=== PATIENT | female | born 1925 | race Caucasian/White ===

== ENCOUNTER 2017-01-12 10:42 | Outpatient (CLI) ==
[2017-01-12 16:02] VITALS: BMI 20.8
== END 2017-01-12 10:43 | disposition home or self-care (01) ==
LOC: AMBL 10:42
PROVIDERS: ATTEND Internal Medicine
DX: R41.82 Altered mental status, unspecified (principal); F03.90 Unspecified dementia, unspecified severity, without behavioral disturbance, psychotic disturbance, mood disturbance, and anxiety

== ENCOUNTER 2017-01-12 10:53 | Observation (INO) ==
[2017-01-12 11:27] LABS: BASOPHILS % (AUTO) 0.4 % (0.0-3.0); EOSINOPHILS # (AUTO) 0.1 K/ul (0.0-0.7); EOSINOPHILS % (AUTO) 0.7 % (0.0-7.0); IMMATURE GRANULOCYTE % (AUTO) 0.5 % (0.0-5.0); LYMPHOCYTES # (AUTO) 2.1 K/uL (0.60-3.4); LYMPHOCYTES % (AUTO) 19.3 (10.0-50.0); MEAN CORPUSCULAR HEMOGLOBIN 31.2 pg (27.0-31.0); MEAN CORPUSCULAR HGB CONC 32.4 (31.8-35.4); MEAN CORPUSCULAR VOLUME 96.3 fl (81.0-99.0); MONOCYTES # (AUTO) 0.7 K/uL (0.4-2.0); MONOCYTES % (AUTO) 6.6 (0-10); NEUTROPHILS % (AUTO) 72.5; PLATELET COUNT 232 10^3/uL (140-440); RED BLOOD COUNT 3.53 10^6/ul (4.20-5.40); WHITE BLOOD COUNT 10.97 K/ul (4.6-10.2)
--- NOTE | 2017-01-12 11:38 | CT ---
EXAM: CT of the head without contrast History: Altered mental status. Comparison: Head CT 05/15/2016 Technique: Multiplanar CT images through the head were obtained without the administration of IV con trast Findings: The visualized paranasal sinuses and mastoid air cells are clear in general. No acute ca lvarial abnormalities. Intracranially there is stable atrophy. No dominant mass or midline shift. No hydrocephalous. No acute intracranial hemorrhage or abnormal extraaxial fluid collections. No change in the periventri cular and subcortical white matter hypodensities. Impression: No acute intracranial process. Stable chronic age-related changes.
[2017-01-12 11:41] LABS: ABG BASE EXCESS -4 (-2.0-2.0); ABG HCO3 21.1 (22.0-26.0); ABG PCO2 33.2 mmHg (35-45); ABG TCO2 22 (22.0-28.0)
[2017-01-12 11:44] LABS: ALBUMIN 2.9 g/dL (3.4-5.0); ALBUMIN/GLOBULIN RATIO 0.76; ANION GAP 11.3; BILIRUBIN,TOTAL 0.26 mg/dL (0.00-1.20); BUN/CREATININE RATIO 17.46; CALCIUM 9.2 mg/dL (8.2-10.2); CREATININE 1.26 mg/dL (0.60-1.30); POTASSIUM 4.3 mmol/L (3.5-5.10); TOTAL PROTEIN 6.7 g/dL (5.8-8.1); TROPONIN I 0.026 ng/ml (0.0000-0.4000)
--- NOTE | 2017-01-12 13:58 | ED.PDOC ---
General ED Provider: Dr. LEE NEWSOME Chief Complaint: Altered Mental Status Stated Complaint: altered Time Seen by Physician: 11:00 Mode of Arrival: Ambulance Information Source: Patient, Fpc, EMT Exam Limitations: No limitations Primary Care Provider: NEFTALY VILLAGRAN Nursing and Triage Documentation Reviewed and Agree: Yes Neurological Complaint Exam - Altered Mental Status Complaint/Exam Current Mental Status: Other (weak altered berifely at half-way easily arousable answere question c/o chest pain) Last Known Well: unknwon Onset: Gradual Duration: few min totaly alet on arrival c/o of dull chest pain mild no radiation Symptoms Are: Resolved Timing: Intermittent Episodes Lasting: Minutes Initial Severity: Mild Current Severity: None Eye Deviation Present: No Character: Reports: Lethargy Aggravating: Reports: None Alleviating: Reports: Spontaneous resolution Associated Signs and Symptoms: Reports: Weakness. Denies: Dizziness, Headache, Fever, Illness, Nuchal rigidity, Seizure, Nausea, Vomiting, Recently depressed, Trauma Review of Systems - Review Of Systems Constitutional: Reports: Malaise, Weakness Eyes: Reports: No symptoms Ears, Nose, Mouth, Throat: Reports: No symptoms Respiratory: Reports: No symptoms Cardiac: Reports: No symptoms GI: Reports: No symptoms : Reports: No symptoms Musculoskeletal: Reports: No symptoms Skin: Reports: No symptoms Neurological: Reports: Cognitive dysfunction Endocrine: Reports: No symptoms Hematologic/Lymphatic: Reports: No symptoms All Other Systems: Reviewed and Negative Past Medical History - Past Medical History Previously Healthy: Yes Endocrine: Reports: Dyslipidemia Cardiovascular: Reports: Hypertension Respiratory: Reports: None Hematological: Reports: None Gastrointestinal: Reports: None Genitourinary: Reports: None Neuro/Psych: Reports: Depression, Dementia Musculoskeletal: Reports: None Cancer: Reports: None Last Menstrual Period: NONE Other Pertinent Past Medical History: lt hip fx, left shoulder dislocation - Surgical History General Surgical History: Reports: Unknown - Family History Family History: Reports: Unknown - Social History Smoking Status: Former smoker Hx Substance Use: No Alcohol Screening: None Physical Exam - Physical Exam Appearance: Ill-appearing Ill-appearing: Mild Pain Distress: Mild Eyes: SANDRINE, EOMI, Conjunctiva clear ENT: Ears normal, Nose normal, Oropharynx normal Respiratory: Airway patent, Breath sounds clear, Breath sounds equal, Respirations nonlabored Cardiovascular: RRR, Pulses normal, No rub, No murmur GI/: Soft, Nontender, No masses, Bowel sounds normal, No Organomegaly Musculoskeletal: Normal strength, ROM intact, No edema, No calf tenderness Skin: Warm, Dry, Normal color Neurological: Sensation intact, Motor intact, Reflexes intact, Cranial nerves intact, Alert, Oriented Psychiatric: Affect appropriate, Mood appropriate Interpretation - Radiology Interpretation Radiology Interpretation By: Radiologist Radiology Results: No acute changes Re-Evaluation - Re-Evaluation Time of Re-Evaluation: 13:00 Status: Improved Vital Signs Stable: Yes Pain Level: 0 Appearance: NAD Lungs: Clear Skin: Warm and Dry Neuro: Alert and Oriented X3 CV: RRR - Re-Evaluation Time of Re-Evaluation: 14:00 Status: Unchanged Vital Signs Stable: Yes Pain Level: 0 Appearance: NAD Skin: Warm and Dry Neuro: Alert and Oriented X3 CV: RRR Physician Notification - Case Discussed Physician Notified: pmd Time of Notification: 14:00 (admitt to observation) Admit To: Observation Critical Care Note - Critical Care Note Total Time (mins): 0 Course - Course Hematology/Chemistry: 01/12/17 11:05 01/12/17 11:05 Orders, Labs, Meds: Lab Review 01/12/17 01/12/17 11:05 11:30 WBC 10.97 H RBC 3.53 L Hgb 11.0 L Hct 34.0 L MCV 96.3 MCH 31.2 H MCHC 32.4 RDW Coeff of Kayleen 12.6 Plt Count 232 Immature Gran % (Auto) 0.5 Neut % (Auto) 72.5 Lymph % (Auto) 19.3 Christian % (Auto) 6.6 Eos % (Auto) 0.7 Baso % (Auto) 0.4 Immature Gran # (Auto) 0.1 Neut # 8.0 H Lymph # 2.1 Christian # 0.7 Eos # 0.1 Baso # 0.0 Puncture Site R rad O2 Saturation 97.0 ABG pH 7.410 ABG pCO2 33.2 L ABG pO2 90.0 ABG HCO3 21.1 L ABG Total CO2 22 ABG Base Excess -4 L Leonel Test + FiO2 % 21.0 Sodium 142 Potassium 4.3 Chloride 109 H Carbon Dioxide 26 Anion Gap 11.3 BUN 22 H Creatinine 1.26 Estimated GFR (MDRD) 40.00 BUN/Creatinine Ratio 17.46 Glucose 189 H Calcium 9.2 Total Bilirubin 0.26 AST 25 ALT 14 Alkaline Phosphatase 61 Total Creatine Kinase 56 Troponin I 0.0260 Total Protein 6.7 Albumin 2.9 L Globulin 3.8 Albumin/Globulin Ratio 0.76 Orders Category Date Time Status ABG DRAW REQUEST Stat CARDIO 01/12/17 11:07 Completed EKG-(ED ONLY) Stat CARDIO 01/12/17 11:05 Completed ED IV/MEDIPORT/POWERPORT .ONCE EMERGENCY 01/12/17 11:05 Active ARTERIAL BLOOD GAS [ABG] Stat LAB 01/12/17 11:30 Completed CBC W/ AUTO DIFF Stat LAB 01/12/17 11:05 Completed COMPREHENSIVE METABOLIC PANEL Stat LAB 01/12/17 11:05 Completed CREATINE KINASE Stat LAB 01/12/17 11:05 Completed TROPONIN I Stat LAB 01/12/17 11:05 Completed URINALYSIS C & S IF INDICATED Stat LAB 01/12/17 11:05 Uncollected 0.9 % Sodium Chloride [Saline Flush] MEDS 01/12/17 11:05 Active 1 syr IVF PRN PRN CT HEAD W/O CONTRAST Stat RADS 01/12/17 11:07 Completed Medications Generic Name Dose Route Start Last Admin Trade Name Freq PRN Reason Stop Dose Admin Sodium Chloride 1 syr 01/12/17 11:05 Saline Flush IVF PRN PRN To flush IV Vital Signs: Temp Pulse Resp BP Pulse Ox 01/12/17 10:53 98.4 F 68 20 98/51 L 100 Departure - Departure Time of Disposition: 14:00 Disposition: PLACED OBSERVATION Discharge Problem: Altered mental status Instructions: Altered Mental Status (ED) Condition: Good Pt referred to PMD for follow-up: Yes (admitt) Allergies/Adverse Reactions: Allergies donepezil HCl [From Aricept] Adverse Reaction (Verified 05/15/16 10:14) Home Medications: Ambulatory Orders Docusate Sodium 100 mg PO BID 08/29/14 Ferrous Sulfate 325 mg PO BID 08/29/14 Magnesium Hydroxide [Milk of Magnesia] 30 ml PO DAILY PRN 08/29/14 Omeprazole [Prilosec] 20 mg PO QDAC 08/29/14 Loratadine [Claritin] 10 mg PO DAILY 11/01/15 Polyethylene Glycol 3350 [Miralax] 17 gm PO DAILY 11/01/15 Calcium Carbonate [Calcium] 600 mg PO BID 05/06/16 Cholecalciferol (Vitamin D3) [Vitamin D3] 2,000 unit PO DAILY 05/06/16 Lisinopril [Zestril] 40 mg PO DAILY #30 tablet 05/12/16 Multivits,Th W-Fe,Other Min [Therems-M] 1 each PO BID 06/22/16 Thiamine HCl 50 mg PO DAILY 06/22/16 Potassium Chloride [K-Dur] 10 meq PO BID 01/12/17 Disposition Discussed With: Patient, Family
[2017-01-12] MEDS: SODIUM CHLORIDE 1,000 ML IV SCH (15:55)
[2017-01-12] MEDS: BACTROBAN TP SCH ×2 (15:55→20:08)
[2017-01-12 16:02] VITALS: BMI 20.8
[2017-01-12] MEDS ORDERED: K-DUR PO STA (20:10)
[2017-01-12] MEDS: K-DUR PO SCH (20:12)
[2017-01-12 20:26] LABS: TROPONIN I 0.025 ng/ml (0.0000-0.4000)
[2017-01-13] MEDS: SODIUM CHLORIDE 1,000 ML IV SCH ×2 (04:27→18:34)
[2017-01-13 04:48] LABS: BASOPHILS % (AUTO) 0.4 % (0.0-3.0); EOSINOPHILS # (AUTO) 0.1 K/ul (0.0-0.7); EOSINOPHILS % (AUTO) 1.3 % (0.0-7.0); HEMATOCRIT 29.1 % (37.0-47.0); HEMOGLOBIN 9.7 g/dl (12.0-16.0); IMMATURE GRANULOCYTE % (AUTO) 0.1 % (0.0-5.0); LYMPHOCYTES % (AUTO) 26.4 (10.0-50.0); MEAN CORPUSCULAR HEMOGLOBIN 31.5 pg (27.0-31.0); MEAN CORPUSCULAR HGB CONC 33.3 (31.8-35.4); MEAN CORPUSCULAR VOLUME 94.5 fl (81.0-99.0); MONOCYTES # (AUTO) 0.7 K/uL (0.4-2.0); NEUTROPHILS # (AUTO) 4.8 K/ul (2.0-6.9); NEUTROPHILS % (AUTO) 62.8; PLATELET COUNT 196 10^3/uL (140-440); RED BLOOD COUNT 3.08 10^6/ul (4.20-5.40); WHITE BLOOD COUNT 7.68 K/ul (4.6-10.2)
[2017-01-13 05:14] LABS: ALBUMIN 2.6 g/dL (3.4-5.0); ALBUMIN/GLOBULIN RATIO 0.84; ANION GAP 11.1; BILIRUBIN,TOTAL 0.3 mg/dL (0.00-1.20); BUN/CREATININE RATIO 23.86; CALCIUM 8.4 mg/dL (8.2-10.2); CREATININE 0.88 mg/dL (0.60-1.30); POTASSIUM 4.1 mmol/L (3.5-5.10); TOTAL PROTEIN 5.7 g/dL (5.8-8.1); TROPONIN I 0.021 ng/ml (0.0000-0.4000)
[2017-01-13] MEDS ORDERED: THIAMINE HCL 50 MG PO SCH (09:00)
[2017-01-13 09:12] LABS: CHOL/HDL RATIO 4.2 (4.5-5.5)
--- NOTE | 2017-01-13 09:17 | PCM.PROG ---
Attending Provider: ATTENDING PROVIDER: Dr. NEFTALY VILLAGRAN DATE OF SERVICE: 01/13/17 SUBJECTIVE: This 89 year old WHITE/ F was hospitalized 01/12/17. The patient is seen with Marissa, Nurse Practitioner. The patient was admitted to observation with acute confusion and weakness. She is lying in bed, oriented to person. MRI of the brain is scheduled for today. REVIEW OF SYSTEMS: CONSTITUTIONAL: Confusion; generalized weakness, fatigue. No night sweats. No fever or chills. HEENT: Eyes: No visual changes. No eye pain. No eye discharge. ENT: No runny nose. No epistaxis. No sinus pain. No odynophagia. No congestion. RESPIRATORY: No cough, no congestion. No hemoptysis. CARDIOVASCULAR: No angina symptoms. No CHF symptoms. No atypical chest pain for CAD. No palpitations. No shortness of breath. GASTROINTESTINAL: No abdominal pain. No nausea or vomiting. No diarrhea or constipation. No hematemesis. No hematochezia. GENITOURINARY: No urgency. No frequency. No dysuria. No hematuria. No obstructive symptoms. No discharge. No pain. No significant abnormal bleeding. MUSCULOSKELETAL: No musculoskeletal pain; no joint swelling. NEUROLOGICAL: Awake, somewhat confused, oriented to person. No headache. No neck pain. No syncope. No seizures. No dizziness. PSYCHIATRIC: Not anxious. No depression. No suicidal thoughts. No homicidal thoughts. SKIN: No rash. Skin tears right upper extremity and right lower extremity. ENDOCRINE: No unexplained weight loss. No weight gain. HEMATOLOGIC/LYMPHATIC: No anemia. No purpura. No petechiae. No prolonged or excessive bleeding. No palpable lymph nodes. PHYSICAL EXAMINATION: GENERAL: The patient is awake, confused, oriented to person lying in bed in no distress. VITAL SIGNS: Temperature 98.2 F, Pulse 65, Respiratory Rate 15, BP 155/74, Pulse Ox 99% HEENT: Head normocephalic, atraumatic. Eyes: Extraocular muscles are intact. Pupils are equal, round and reactive to light and accommodation. Ears: No lesions. Nose appeared normal. Throat: No exudate or erythema. NECK: Supple. No JVD, no carotid bruit. No lymphadenopathy or thyromegaly. LUNGS: Clear and equally diminished to auscultation. Percussion note normal. Chest symmetrical. HEART: S1, S2, no S3. Grade II/ murmur. No cyanosis or clubbing. No ascites. Pulses: Dorsalis pedis and posterior tibial pulses +1 to +2 both sides. ABDOMEN: Soft. Non-tender. Bowel sounds active. No CVA tenderness. No mass felt. EXTREMITIES: No edema. Full range of motion of all extremities, equal. NEUROLOGIC: No focal deficit. Cranial nerves II through XII are grossly intact. No headache, no double vision or headache. SKIN: Chronic superficial skin tears right lower extremity with sanguineous drainage only, localized erythema. No signs of infection. Right forearm also has skin tear. LYMPHATIC: No palpable lymph nodes/no lymphedema. MUSCULOSKELETAL: Normal joints with no swelling. Muscle tone is normal. LAB REVIEW: 01/13/17 04:15 01/13/17 04:15 01/13/17 04:15: WBC 7.68, RBC 3.08 L, Hgb 9.7 L, Hct 29.1 L, MCV 94.5, MCH 31.5 H, MCHC 33.3, RDW Coeff of Kayleen 12.5, Plt Count 196, Immature Gran % (Auto) 0.1, Neut % (Auto) 62.8, Lymph % (Auto) 26.4, [place] % (Auto) 9.0, Eos % (Auto) 1.3, Baso % (Auto) 0.4, Immature Gran # (Auto) 0.0, Neut # 4.8, Lymph # 2.0, [place] # 0.7, Eos # 0.1, Baso # 0.0, Sodium 143, Potassium 4.1, Chloride 112 H, Carbon Dioxide 24, Anion Gap 11.1, BUN 21 H, Creatinine 0.88, Estimated GFR (MDRD) 61.00, BUN/Creatinine Ratio 23.86, Glucose 86 D, Calcium 8.4, Total Bilirubin 0.30, AST 20, ALT 12, Alkaline Phosphatase 52 L, Total Creatine Kinase 55, Troponin I 0.0210, Total Protein 5.7 L, Albumin 2.6 L, Globulin 3.1, Albumin/ Globulin Ratio 0.84 01/12/17 20:00: Total Creatine Kinase 50, Troponin I 0.0250 ASSESSMENT: 1. Altered mental status 2. Weakness 3. Superficial skin tears right lower extremity and right upper extremity 4. Aortic stenosis 5. Hypertension 6. Dementia PLAN: 1. Continue Bactroban to right lower extremity 2. Lipid panel 3. T4 and TSH 4. Wound culture pending 5. Echocardiogram 6. MRI of the brain today Plan and coordination of the patient's care discussed in the presence of Nickel Operator and nurse. CONDITION: Stable SCRIBED BY: SOUMYA GABRIEL Historic Clothing And Costume Maker scribed while in presence of service performed by Dr. NEFTALY VILLAGRAN/MARISSA SHETH APRN on 01/13/17 ([id number])
--- NOTE | 2017-01-13 09:29 | PN ---
DATE OF SERVICE: 01/12/17 ADMIT NOTE REASON FOR HOSPITALIZATION: Altered Mental Status. HISTORY OF PRESENT ILLNESS: The patient is an 89 year old white female had altered mental status. The detention called and asked the daughter where she would like her to be taken. They brought her to the Emergency Room at [facility]. The patient had check-up by ER attending with CT scan of the head and lab tests. The patient was found to have mild dehydration otherwise CT scan of the head did not show any acute abnormality. Her blood gasses were normal and so were CBC and CMP with mild and mild dehydration with creatinine of 1.2 and BUN of 22. REVIEW OF SYSTEMS: The patient is somewhat drowsy and unable to give any review of system but doesn't seem to be in any distress. CONSTITUTIONAL: No night sweats. No fatigue, malaise, lethargy. No fever or chills. HEENT: Eyes: No visual changes. No eye pain. No eye discharge. ENT: No runny nose. No epistaxis. No sinus pain. No sore throat. No odynophagia. No ear pain. No congestion. RESPIRATORY: No cough, no congestion. No hemoptysis. CARDIOVASCULAR: No angina symptoms. No CHF symptoms. No atypical chest pain for CAD. No palpitations. No shortness of breath. GASTROINTESTINAL: No abdominal pain. No nausea or vomiting. No diarrhea or constipation. No hematemesis. No hematochezia. GENITOURINARY: No urgency. No frequency. No dysuria. No hematuria. No obstructive symptoms. No discharge. No pain. No significant abnormal bleeding. MUSCULOSKELETAL: No musculoskeletal pain. No joint swelling. No arthritis. NEUROLOGICAL: No headache. No neck pain. No syncope. No seizures. No dizziness. PSYCHIATRIC: Not anxious. No depression. No suicidal thoughts. No homicidal thoughts. SKIN: No rash. No lesions. No wounds. ENDOCRINE: No unexplained weight loss. No weight gain. HEMATOLOGIC/LYMPHATIC: No anemia. No purpura. No petechiae. No prolonged or excessive bleeding. No palpable lymph nodes. PHYSICAL EXAMINATION: GENERAL: The patient is alert, drowsy at time. VITAL SIGNS: Temperature 98.4, pulse 68, respiratory rate 20, blood pressure 98 /51 and pulse ox 100%. HEENT: Head normocephalic, atraumatic. Eyes: Extraocular muscles are intact. Pupils are equal, round and reactive to light and accommodation. Ears: No lesions. Nose appeared normal. Throat: No exudate or erythema. NECK: Supple. No JVD, no carotid bruit. No lymphadenopathy or thyromegaly. LUNGS: Decreased breath sounds but clear to auscultation. Percussion note normal. Chest symmetrical. HEART: S1, S2, no S3. No murmurs. No cyanosis or clubbing. No ascites. Pulses: Dorsalis pedis and posterior tibial pulses +1 to +2 both sides. ABDOMEN: Soft. Nontender. Bowel sounds active. No CVA tenderness. No mass felt. EXTREMITIES: No edema. Full range of motion of all extremities, equal. Ulcers on the right leg friction from shearing with very thin skin. The patient's lower extremity the right one is externally rotated and ulcer are superficial Grade I. The patient has another tear on right elbow and needs to be cleaned and have steri-strips on it. All the friction ulcers which are approximately 1.5in and all has normal healthy granulation tissue with no infection. They are superficial as mentioned above. NEUROLOGIC: No focal deficit. Cranial nerves II through XII are grossly intact. No headache, no double vision or headache. SKIN: Not dry. Intact. Turgor - normal. LYMPHATIC: No palpable lymph nodes/no lymphedema. MUSCULOSKELETAL: Normal joints with no swelling. Muscle tone is normal. ASSESSMENT: 1. Change in the mental status, etiology unknown could be dehydration 2. Coronary artery disease 3. Hypertension 4. Alzheimer's disease 5. COPD 6. Depression 7. Status post left hip fracture repair 8. Status post Biliary obstruction, history of 9. Recurrent urinary tract infection PLAN: 1. Admit the patient 2. IV fluids 3. Neuro check every two hourly 4. Will do MRI brain tomorrow 5. The patient's daughter is in the room and talked to her about the patient's condition and they are satisfied with where the patient is receiving the care. 6. Will do Bactroban application twice a day to superficial ulcers. 7. The patient did not have any urine specimen given, will check her for UTI. PROGNOSIS: Healing the ulcers are not good because of the patient's bed ridden condition. Of course external rotated right leg is against the bed sheet and she will have to turned quite often but still with the way her positional status is and friction and thin skin she is going to be prone to more ulcers and hard to heal. TIME SPENT: More than 70 minutes. LATANYA
[2017-01-13] MEDS: BACTROBAN TP SCH ×2 (09:51→20:11)
[2017-01-13] MEDS: K-DUR PO SCH ×2 (09:51→20:11)
[2017-01-13] MEDS: ZESTRIL PO SCH (09:51)
[2017-01-13 12:14] LABS: BILIRUBIN,URINE Negative (NEGATIVE); KETONES,URINE Negative (NEGATIVE); LEUKOCYTE ESTERASE ,URINE Trace (NEGATIVE); NITRITE,URINE Positive (NEGATIVE); PH,URINE 7.5 (5-9); PROTEIN,URINE 2+ (NEGATIVE); URINE, BLOOD Trace-intact (NEGATIVE)
[2017-01-13 12:15] LABS: ADD URINE MICROSCOPIC YES
[2017-01-13 12:16] LABS: BACTERIA,URINE 2+ (NOT PRESENT)
[2017-01-14 05:00] LABS: BASOPHILS % (AUTO) 0.5 % (0.0-3.0); EOSINOPHILS # (AUTO) 0.1 K/ul (0.0-0.7); HEMATOCRIT 30.2 % (37.0-47.0); HEMOGLOBIN 10.3 g/dl (12.0-16.0); IMMATURE GRANULOCYTE % (AUTO) 0.2 % (0.0-5.0); LYMPHOCYTES # (AUTO) 1.9 K/uL (0.60-3.4); LYMPHOCYTES % (AUTO) 29.8 (10.0-50.0); MEAN CORPUSCULAR HEMOGLOBIN 31.9 pg (27.0-31.0); MEAN CORPUSCULAR HGB CONC 34.1 (31.8-35.4); MEAN CORPUSCULAR VOLUME 93.5 fl (81.0-99.0); MONOCYTES # (AUTO) 0.6 K/uL (0.4-2.0); MONOCYTES % (AUTO) 9.7 (0-10); NEUTROPHILS # (AUTO) 3.7 K/ul (2.0-6.9); NEUTROPHILS % (AUTO) 57.8; PLATELET COUNT 188 10^3/uL (140-440); RED BLOOD COUNT 3.23 10^6/ul (4.20-5.40); WHITE BLOOD COUNT 6.38 K/ul (4.6-10.2)
[2017-01-14 05:17] LABS: ALBUMIN 2.6 g/dL (3.4-5.0); ALBUMIN/GLOBULIN RATIO 0.84; ANION GAP 12.1; BILIRUBIN,TOTAL 0.48 mg/dL (0.00-1.20); BUN/CREATININE RATIO 18.82; CALCIUM 8.3 mg/dL (8.2-10.2); CREATININE 0.85 mg/dL (0.60-1.30); POTASSIUM 4.1 mmol/L (3.5-5.10); TOTAL PROTEIN 5.7 g/dL (5.8-8.1)
--- NOTE | 2017-01-14 09:05 | PCM.PROG ---
Attending Provider: ATTENDING PROVIDER: Dr. NEFTALY VILLAGRAN DATE OF SERVICE: 01/14/17 SUBJECTIVE: This 89 year old WHITE/ F was hospitalized 01/12/17. The patient is seen with Marissa, Nurse Practitioner. The patient is lying in bed. She is alert, is doing well. The right lower leg wounds are positive for gram negative rods, on Bactroban. REVIEW OF SYSTEMS: CONSTITUTIONAL: Weakness. No night sweats. No fever or chills. HEENT: Eyes: No visual changes. No eye pain. No eye discharge. ENT: No runny nose. No epistaxis. No sinus pain. No odynophagia. No congestion. RESPIRATORY: No cough, no congestion. No hemoptysis. CARDIOVASCULAR: No angina symptoms. No CHF symptoms. No atypical chest pain for CAD. No palpitations. No shortness of breath. GASTROINTESTINAL: No abdominal pain. No nausea or vomiting. No diarrhea or constipation. No hematemesis. No hematochezia. GENITOURINARY: No urgency. No frequency. No dysuria. No hematuria. No obstructive symptoms. No discharge. No pain. No significant abnormal bleeding. MUSCULOSKELETAL: No musculoskeletal pain; no joint swelling. NEUROLOGICAL: Awake, alert, not oriented, has some confusion. No headache. No neck pain. No syncope. No seizures. No dizziness. PSYCHIATRIC: Not anxious. No depression. No suicidal thoughts. No homicidal thoughts. SKIN: No rash. Superficial skin tears right upper extremity and right lower extremity. ENDOCRINE: No unexplained weight loss. No weight gain. HEMATOLOGIC/LYMPHATIC: No anemia. No purpura. No petechiae. No prolonged or excessive bleeding. No palpable lymph nodes. PHYSICAL EXAMINATION: GENERAL: The patient is awake, alert, not oriented, lying in bed in no distress. VITAL SIGNS: Temperature 98.2 F, Pulse 65, Respiratory Rate 16, BP 155/77, Pulse Ox 100% HEENT: Head normocephalic, atraumatic. Eyes: Extraocular muscles are intact. Pupils are equal, round and reactive to light and accommodation. Ears: No lesions. Nose appeared normal. Throat: No exudate or erythema. NECK: Supple. No JVD, no carotid bruit. No lymphadenopathy or thyromegaly. LUNGS: Clear to auscultation. Percussion note normal. Chest symmetrical. HEART: S1, S2, no S3. No murmurs. No cyanosis or clubbing. No ascites. Pulses: Dorsalis pedis and posterior tibial pulses +1 to +2 both sides. ABDOMEN: Soft. Non-tender. Bowel sounds active. No CVA tenderness. No mass felt. EXTREMITIES: No edema. Full range of motion of all extremities, equal. Superficial skin tears to right lower extremity and right upper extremity. No signs of infection, bloody drainage only. NEUROLOGIC: No focal deficit. Cranial nerves II through XII are grossly intact. No headache, no double vision or headache. SKIN: Not dry. Intact. Turgor-normal. LYMPHATIC: No palpable lymph nodes/no lymphedema. MUSCULOSKELETAL: Normal joints with no swelling. Muscle tone is normal. LAB REVIEW: 01/14/17 04:30 01/14/17 04:30 01/14/17 04:30: WBC 6.38, RBC 3.23 L, Hgb 10.3 L, Hct 30.2 L, MCV 93.5, MCH 31.9 H, MCHC 34.1, RDW Coeff of Kayleen 12.2, Plt Count 188, Immature Gran % (Auto) 0.2, Neut % (Auto) 57.8, Lymph % (Auto) 29.8, [place] % (Auto) 9.7, Eos % (Auto) 2.0, Baso % (Auto) 0.5, Immature Gran # (Auto) 0.0, Neut # 3.7, Lymph # 1.9, [place] # 0.6, Eos # 0.1, Baso # 0.0, Sodium 141, Potassium 4.1, Chloride 112 H, Carbon Dioxide 21 L, Anion Gap 12.1, BUN 16, Creatinine 0.85, Estimated GFR ( MDRD) 63.00, BUN/Creatinine Ratio 18.82, Glucose 83, Calcium 8.3, Total Bilirubin 0.48, AST 22, ALT 11 L, Alkaline Phosphatase 67, Total Protein 5.7 L, Albumin 2.6 L, Globulin 3.1, Albumin/Globulin Ratio 0.84 01/13/17 11:50: Urine Color Yellow, Urine Clarity Cloudy, Urine pH 7.5, Ur Specific [place] 1.020, Urine Protein 2+, Urine Glucose (UA) Negative, Urine Ketones Negative, Urine Blood Trace-intact, Urine Nitrite Positive, Urine Bilirubin Negative, Urine Urobilinogen 0.2, Ur Leukocyte Esterase Trace, Urine Microscopic RBC 0-2, Ur Squamous Epith Cells 50-100, Urine Bacteria 2+, Urine Mucus 1+ 01/13/17 04:10: Triglycerides 106, Cholesterol 156, LDL Cholesterol, Calc 98, VLDL Cholesterol 21, HDL Cholesterol 37, Cholesterol/HDL Ratio 4.2 L, TSH 1.505 , Free T4 0.89 ASSESSMENT: 1. Altered mental status 2. Weakness 3. Superficial skin tears right lower extremity and right upper extremity 4. Aortic stenosis 5. Hypertension 6. Dementia PLAN: 1. Discharge to retirement. 2. Continue Bactroban for next 2 weeks. 3. Resume all home medications. Plan and coordination of the patient's care discussed in the presence of Messaging Architect and nurse. CONDITION: Stable SCRIBED BY: SOUMYA GABRIEL Racing Secretary scribed while in presence of service performed by Dr. NEFTALY VILLAGRAN/MARISSA SHETH APRN on 01/14/17 ([id number])
[2017-01-14] MEDS: ZESTRIL PO SCH (09:38)
[2017-01-14] MEDS: K-DUR PO SCH (09:38)
[2017-01-14] MEDS: BACTROBAN TP SCH (09:38)
[2017-01-14 11:57] VITALS: BP 132/60; TEMP 97.9
--- NOTE | 2017-01-14 11:57 | PN ---
DATE OF SERVICE: 01/13/17 SUBJECTIVE: The patient was seen with the Nurse Practitioner. The patient is doing well. and no neurological deficit. She had a change in the mental status. PHYSICAL EXAMINATION: GENERAL: The patient is alert but oriented to time, place and person. HEENT: Head normocephalic, atraumatic. Eyes: Extraocular muscles are intact. Pupils are equal, round and reactive to light and accommodation. Ears: No lesions. Nose appeared normal. Throat: No exudate or erythema. NECK: Supple. No JVD, no carotid bruit. No lymphadenopathy or thyromegaly. LUNGS: Clear to auscultation. Percussion note normal. Chest symmetrical. HEART: S1, S2, no S3. Grade I to II/ systolic murmur. No cyanosis or clubbing. No ascites. Pulses: Dorsalis pedis and posterior tibial pulses +1 to +2 both sides. ABDOMEN: Soft. Nontender. Bowel sounds active. No CVA tenderness. No mass felt. EXTREMITIES: No edema. Full range of motion of all extremities, equal. NEUROLOGIC: No focal deficit. Cranial nerves II through XII are grossly intact. No headache, no double vision or headache. SKIN: Not dry. Intact. Turgor - normal. LYMPHATIC: No palpable lymph nodes/no lymphedema. MUSCULOSKELETAL: Normal joints with no swelling. Muscle tone is normal. LABS: Stable with hgb 9.7, hct 29, WBC 7,600 normal differential, creatinine 0.8, BUN 21, potassium 4.1. ASSESSMENT: 1. History of aortic stenosis PLAN: 1. Will do echocardiogram before discharge 2. MRI of the brain waiting to be done. TIME SPENT: More than 30 minutes. Plan and coordination of the patient's care discussed in the presence of nurse. LATANYA
[2017-01-14] MEDS ORDERED: NON-FORMULARY MEDICATION (Potassium Chloride [Potassium Chloride] 10 MEQ) PO SCH ×22 (21:00)
--- NOTE | 2017-01-17 12:11 | ECHO2D ---
Date of Exam: 01/14/17 Ordering Physician: NEFTALY VILLAGRAN Reason for Echo: CARDIAC MURMUR, HYPOTENSIVE EPISODE Murmurs: SYSTOLIC M-Mode Normal Adult Results LV Dimensions Normal Adult Results AoV Opening excursions >1.6 1.3 LVEDD-base- 3.5-5.8 4.4 Ao root dimensions 2.0-3.7 3.0 LVESD-base- 3.1-4.6 L. Atrium dimensions 1.9-3.8 4.1 Post. Wall thickness 0.8-1.1 1.1 IV septum (thickness) 0.7-1.2 1.1 Post. Wall excursion 0.72-1.3 NORMAL Septal motion NORMAL Systolic motion R. Ventricular cavity 1.5-2.0 NORMAL LVEF 60% 57% Paradoxical septal wall motion NORMAL 2-D : CALCIFIC AORTIC STENOSIS--NORMAL LEFT VENTRICULAR CONTRACTILITY--NO EFFUSION, NO THROMBUS, NORMAL MITRAL VALVES, ENLARGED LEFT ATRIAL CAVITY, NORMAL LEFT VENTRICULAR CONTRACTILITY DOPPLER WITH COLOR FLOW: PLANIMETRY AORTIC VALVE AREA 1.4 CM2 M-MODE: MV: NORMAL AV: CALCIFIC AORTIC STENOSIS TV: NORMAL PV: CHAMBER SIZE: ENLARGED LEFT ATRIAL CAVITY WALL MOTION: NORMAL PERICARDIUM: NORMAL INTERPRETATION: 1. ENLARGED LEFT ATRIAL CAVITY 2. NORMAL LEFT VENTRICULAR CONTRACTILITY 3. CALCIFIC AORTIC STENOSIS MILD 4. VALVE AREA 1.4 CM2 MTDD
--- NOTE | 2017-01-17 13:38 | SSS ---
DATE OF SERVICE: 01/14/17 REASON FOR CONSULTATION/ADMISSION: Weakness and altered mental status. HISTORY OF PRESENT ILLNESS: The patient was sent from the prison after she became cool, clammy and pale. longterm she was drooling, her O2 Sats were 82%. She did awaken at prison and became more alert. Reported heart hurt. REVIEW OF SYSTEMS: CONSTITUTIONAL: No night sweats. Lethargy and weakness. No fever or chills. HEENT: Eyes: No visual changes. No eye pain. No eye discharge. ENT: No runny nose. No epistaxis. No sinus pain. No sore throat. No odynophagia. No ear pain. No congestion. RESPIRATORY: No cough, no congestion. No hemoptysis. CARDIOVASCULAR: No angina symptoms. No CHF symptoms. No atypical chest pain for CAD. No palpitations. No shortness of breath. Dull chest pain with no radiation. GASTROINTESTINAL: No abdominal pain. No nausea or vomiting. No diarrhea or constipation. No hematemesis. No hematochezia. GENITOURINARY: No urgency. No frequency. No dysuria. No hematuria. No obstructive symptoms. No discharge. No pain. No significant abnormal bleeding. MUSCULOSKELETAL: No musculoskeletal pain. No joint swelling. NEUROLOGICAL: Awake, alert, oriented to time, place and person. No headache. No neck pain. No syncope. No seizures. No dizziness. PSYCHIATRIC: Not anxious. No depression. No suicidal thoughts. No homicidal thoughts. SKIN: No rash. Sever skin tears/abrasions with bruising right arm and right leg. Bruising right leg. ENDOCRINE: No unexplained weight loss. No weight gain. HEMATOLOGIC/LYMPHATIC: No anemia. No purpura. No petechiae. No prolonged or excessive bleeding. No palpable lymph nodes. PAST HISTORY: CAD Hypertension Dyslipidemia History of left hip fracture Alzheimer's Dementia Constipation Hysterectomy Left should dislocation ALLERGIES: Donepezil HCL MEDICATION: Colace Ferrous Sulfate Milk of Magnesia Prilosec Claritin Miralax Calcium Carbonate Vitamin D3 Lisinopril Multivitamin Thiamine K-Dur PERSONAL/FAMILY HISTORY/SOCIAL HISTORY: The patient is and lives at [facility] [place] [facility] [place]. No alcohol or tobacco use. Family History is positive for [place]. PHYSICAL EXAMINATION: GENERAL: The patient is a 89 year old white female. VITAL SIGNS: Temperature 98.2, pulse 65, respiratory rate 16, blood pressure 155 /77 and oxygen saturation 100% on room air. Height 65 inches and 125 pounds. HEENT: Head normocephalic, atraumatic. Eyes: Extraocular muscles are intact. Pupils are equal, round and reactive to light and accommodation. Ears: No lesions. Nose appeared normal. Throat: No exudate or erythema. NECK: Supple. No JVD, no carotid bruit. No lymphadenopathy or thyromegaly. LUNGS: Clear to auscultation. Percussion note normal. Chest symmetrical. HEART: S1, S2, no S3. Grade II/ systolic murmurs. No cyanosis or clubbing. No ascites. Pulses: Dorsalis pedis and posterior tibial pulses +1 to +2 both sides. ABDOMEN: Soft. Nontender. Bowel sounds active. No CVA tenderness. No mass felt. EXTREMITIES: No edema. Full range of motion of all extremities, equal. NEUROLOGIC: No focal deficit. Cranial nerves II through XII are grossly intact. No headache, no double vision or headache. SKIN: Not dry. Intact. Turgor - normal. 3 wounds- superficial (abrasion type wounds) to right lower extremity, right leg would-proteus mirabilis. Right leg wound GPC and GNR, right leg would and GPC and right upper arm-below elbow. LYMPHATIC: No palpable lymph nodes/no lymphedema. MUSCULOSKELETAL: Normal joints with no swelling. Muscle tone is normal. Old/present records reviewed: Yes Office records reviewed: Yes. LABS/EKG'S/X-RAY/ECHO/ABG: WBC 10.97, RBC 3.53, hgb 11.0, hct 34.0, BUN 22, creatinine 26, glucose 189. U/ A 2+ bacteria, positive nitrates, trace, 2+ protein. RA Sat 97% pO2 90 right arm prelim culture GPC. CT head no acute chronic age related changes CPK. Troponin within normal limits x3 PROGRESS NOTES: See EMR. BRIEF HOSPITAL COURSE: The patient is an 89 year old white female was hospitalized with change in the mental status noticed by the prison and also family. The patient during the stay in the hospital became more alert with periods of confusion. No neurological deficit. CT scan of the head was negative. She did not cooperate for MRI of the brain. The patient is 89 and demented with no neurological deficit. Likely she has worsening of the dementia. The appetite has been erratic. She was given IV fluids and her condition improved. She has mild to moderate aortic stenosis and this was explained to the daughter. The patient's condition at the time of discharge is stable. DIAGNOSES: 1. Change in the mental status likely dehydration 2. Dementia worsening 3. Coronary artery disease 4. Hypertension 5. Dyslipidemia 6. Mild to moderate aortic stenosis 7. Status post Hip fracture RECOMMENDATIONS/PLAN: 1. Return to [facility] [place] [facility] [place] 2. Vital signs daily x1 week 3. Continue all previous medications 4. CBC and CMP in one week 5. Cleanse all wounds (right leg and right arm) with NSS, apply Bactroban and Telfa dressing twice a day 6. Consult Wound Care Nurse. 7. Dr. Barber or CELINA to see in 7 days TIME SPENT: More than 70 minutes. LATANYA
--- NOTE | 2017-01-17 14:24 | PN ---
DATE OF SERVICE: 01/14/17 SUBJECTIVE: The patient's mental status is more alert. She is not sleeping or confused like she was but still disoriented to time, place and person. REVIEW OF SYSTEMS: CONSTITUTIONAL: No night sweats.Weakness seems to have improved some. No fever or chills. HEENT: Eyes: No visual changes. No eye pain. No eye discharge. ENT: No runny nose. No epistaxis. No sinus pain. No sore throat. No odynophagia. No congestion. RESPIRATORY: No cough, no congestion. No hemoptysis. CARDIOVASCULAR: No angina symptoms. No CHF symptoms. No atypical chest pain for CAD. No palpitations. No shortness of breath. GASTROINTESTINAL: No abdominal pain. No nausea or vomiting. No diarrhea or constipation. No hematemesis. No hematochezia. GENITOURINARY: No urgency. No frequency. No dysuria. No hematuria. No obstructive symptoms. No discharge. No pain. No significant abnormal bleeding. MUSCULOSKELETAL: No musculoskeletal pain; no joint swelling. NEUROLOGICAL: No headache. No neck pain. No syncope. No seizures. No dizziness. PSYCHIATRIC: Not anxious. No depression. No suicidal thoughts. No homicidal thoughts. SKIN: No rash. No lesions. No wounds. ENDOCRINE: No unexplained weight loss. No weight gain. HEMATOLOGIC/LYMPHATIC: No anemia. No purpura. No petechiae. No prolonged or excessive bleeding. No palpable lymph nodes. PHYSICAL EXAMINATION: VITAL SIGNS: Blood pressure 155/77 HEENT: Head normocephalic, atraumatic. Eyes: Extraocular muscles are intact. Pupils are equal, round and reactive to light and accommodation. Ears: No lesions. Nose appeared normal. Throat: No exudate or erythema. NECK: Supple. No JVD, no carotid bruit. No lymphadenopathy or thyromegaly. LUNGS: Clear to auscultation. Percussion note normal. Chest symmetrical. HEART: S1, S2, no S3. Systolic murmur for which she is going to have an echocardiogram. No cyanosis or clubbing. No ascites. Pulses: Dorsalis pedis and posterior tibial pulses +1 to +2 both sides. ABDOMEN: Soft. Nontender. Bowel sounds active. No CVA tenderness. No mass felt. EXTREMITIES: No edema. Full range of motion of all extremities, equal. NEUROLOGIC: No focal deficit. Cranial nerves II through XII are grossly intact. No headache, no double vision or headache. SKIN: Not dry. Intact. Turgor - normal. LYMPHATIC: No palpable lymph nodes/no lymphedema. MUSCULOSKELETAL: Normal joints with no swelling. Muscle tone is normal. LABS: hgb 10.3, hct 30. PLAN: 1. Continue Bactroban 2. Continue the rest of the medication as before 3. Will discharge the patient home. CONDITION: Stable TIME SPENT: More than 30 minutes. Plan and coordination of the patient's care discussed in the presence of nurse. LATANYA
--- NOTE | 2017-01-17 14:25 | PN ---
01/12/17: Level 5 Observation 01/13/17: Intermediate Observation 01/14/17: D as in discharge MTDD
== END 2017-01-14 14:15 | disposition short-term general hospital (02) ==
LOC: ED 10:53 → MEDSURG A 14:06
PROVIDERS: ADMIT Internal Medicine; ATTEND Internal Medicine
DX: R41.82 Altered mental status, unspecified (principal); E86.0 Dehydration; G30.9 Alzheimer's disease, unspecified; F02.80 Dementia in other diseases classified elsewhere, unspecified severity, without behavioral disturbance, psychotic disturbance, mood disturbance, and anxiety; J44.9 Chronic obstructive pulmonary disease, unspecified; I35.0 Nonrheumatic aortic (valve) stenosis; I25.10 Atherosclerotic heart disease of native coronary artery without angina pectoris; S80.811A Abrasion, right lower leg, initial encounter; B96.4 Proteus (mirabilis) (morganii) as the cause of diseases classified elsewhere; S40.811A Abrasion of right upper arm, initial encounter; B95.7 Other staphylococcus as the cause of diseases classified elsewhere; I10 Essential (primary) hypertension; R53.1 Weakness; Z87.891 Personal history of nicotine dependence; Z79.899 Other long term (current) drug therapy
CPT/HCPCS: 36415; 80053; 80061; 81001; 82550; 82803; 82962; 84439; 84443; 84484; 85025; 87070; 87081; 87086; 87186; 93005; 93010; 99284